=== PATIENT | female | born 1965 | race Caucasian/White ===

== ENCOUNTER → 2016-08-26 | Outpatient (CLI) | payer OTHER | LOC: CIMAGING 08:27 | PROVIDERS: ATTEND Obstetrics & Gynecology | DX: R19.09 Other intra-abdominal and pelvic swelling, mass and lump (principal); D25.2 Subserosal leiomyoma of uterus; D25.1 Intramural leiomyoma of uterus; Z97.5 Presence of (intrauterine) contraceptive device | CPT/HCPCS: 76856-PO ==

== ENCOUNTER → 2018-05-14 | Outpatient (CLI) | payer OTHER ==
[~2018-05-14] MED LIST: IOPAMIDOL (ISOVUE 370) 100 ML BTL IV ONE
== END ==
LOC: FIMAGING 14:39
PROVIDERS: ATTEND Physician Assistant Medical
DX: R22.1 Localized swelling, mass and lump, neck (principal); K11.5 Sialolithiasis
CPT/HCPCS: Q9967

== ENCOUNTER 2018-08-17 10:04 | Day surgery (SDC) | payer OTHER ==
[2018-08-17] MEDS ORDERED: ceFAZolin 2 GM/DEXTROSE 100 ML IV ONE (10:50)
--- NOTE | 2018-08-17 10:50 | PDHPUP ---
History & Physical Update H&P update statement: This history and physical update is based on an assessment of the patient which was completed after admission or registration (within 24 hours), but prior to the surgery/procedure. H&P update: H&P reviewed & patient examined, no change in patient's condition since H&P completed (plan for R submax gland excision and NIMS)
[2018-08-17] MEDS ORDERED: LIDO/EPI 1% **Not for Epidural 20 ML MDV ONE (11:13)
[2018-08-17] MEDS ORDERED: LR 1,000 ML IV ONE (11:22)
[2018-08-17] MEDS ORDERED: MIDAZOLAM 2 MG/2 ML VIAL ONE (11:22)
[2018-08-17] MEDS ORDERED: fentaNYL 100 MCG/2 ML INJ ONE ×2 (11:23→13:32)
[2018-08-17] MEDS ORDERED: PROPOFOL 200 MG/20 ML VIAL ONE (11:23)
--- NOTE | 2018-08-17 11:24 | PDANEPAE ---
ANE Past Medical History - Cardiovascular History Hx Hypertension: No Hx Arrhythmias: No Hx Chest Pain: No Hx Coronary Artery / Peripheral Vascular Disease: No Hx CHF / Valvular Disease: No Hx Palpitations: No - Pulmonary History Hx COPD: No Hx Asthma/Reactive Airway Disease: No Hx Recent Upper Respiratory Infection: No Hx Oxygen in Use at Home: No Hx Sleep Apnea: No Sleep Apnea Screening Result - Last Documented: Negative - Neurologic History Hx Cerebrovascular Accident: No Hx Seizures: No Hx Dementia: No Neurologic History Comment: migraines - hormonal - Endocrine History Hx Diabetes: No - Renal History Hx Renal Disorders: No Renal History Comment: kidney stone yrs ago - Liver History Hx Hepatic Disorders: No - Neurological & Psychiatric Hx Hx Neurological and Psychiatric Disorders: No - Cancer History Hx Cancer: No - Congenital Disorder History Hx Congenital Disorders: No - GI History Hx Gastrointestinal Disorders: No - Other Health History Other Health History: neg - Chronic Pain History Chronic Pain: No - Surgical History Prior Surgeries: neg ANE Review of Systems Review of Systems: - Exercise capacity METS (RN): 4 METS ANE Patient History - Allergies Allergies/Adverse Reactions: No Known Allergies Allergy (Verified 08/10/18 08:06) - Home Medications Home Medications: Ascorbic Acid [Vitamin C 500 mg (*)] 500 mg PO DAILY 08/17/18 [Last Taken Unknown] Cholecalciferol Vit D3 [Vitamin D3 (*)] 1,000 units PO DAILY 08/17/18 [Last Taken Unknown] Multivitamins [Multivitamin (*)] 1 each PO DAILY 08/17/18 [Last Taken Unknown] - Smoking Hx Smoking Status: Never smoked - Family Anes Hx Family Hx Anesthesia Complications: neg ANE Labs/Vital Signs - Vital Signs Respiratory Rate: 16 O2 Sat (%): 99 Height: 172.72 cm Weight: 61.235 kg ANE Physical Exam - Airway Mallampati Score: Class 2 - ASA Status ASA Status: I ANE Anesthesia Plan Anesthesia Plan: general endotracheal anesthesia
[2018-08-17] MEDS ORDERED: ONDANSETRON 4 MG/2 ML VIAL ONE (11:26)
[2018-08-17] MEDS ORDERED: ROCURONIUM 50 MG/5 ML VIAL ONE (11:26)
[2018-08-17] MEDS ORDERED: METOCLOPRAMIDE 10 MG/2 ML VIAL ONE (11:27)
[2018-08-17] MEDS ORDERED: DEXAMETHASONE 4 MG/ML VIAL ONE ×2 (12:21)
[2018-08-17] MEDS ORDERED: BACITRACIN ZINC 0.5 OZ OINTTUBE TP ONE (14:00)
[2018-08-17] MEDS ORDERED: LR 500 ML IV PRN (14:17)
[2018-08-17] MEDS ORDERED: NALOXONE HCL 0.4 MG/ML INJ IVP PRN (14:17)
[2018-08-17] MEDS ORDERED: ONDANSETRON 4 MG/2 ML VIAL IVP PRN (14:17)
[2018-08-17] MEDS ORDERED: oxyCODONE IR 5 MG TAB PO PRN (14:17)
[2018-08-17] MEDS ORDERED: fentaNYL 100 MCG/2 ML INJ IVP PRN (14:17)
[2018-08-17] MEDS ORDERED: PROMETHAZINE HCL 25 MG/ML INJ IVP PRN (14:17)
--- NOTE | 2018-08-17 14:18 | POSTANESTH ---
Post Anesthetic Evaluation Cardiovascular Status: Normal, Stable Respiratory Status: Normal, Stable Level of Consciousness/Mental Status: Can Participate in Eval Pain Control: Adequate, Prn Tx Ordered Nausea/Vomiting Control: Adequate, Prn Tx Ordered Complications Possibly Related to Anesthesia: None Noted
--- NOTE | 2018-08-17 14:27 | POSTOPPROG ---
Post Op Note Date of Operation: 08/17/18 Surgeon: [employer] Despatcher: Moody Uriostegui mD Anesthesiologist: Magdaleno Salomon MD Pre-op Diagnosis: R submandibular gland sialathiasis Post-op Diagnosis: same Procedure: R submax gland excision, NIMS Findings: very inflamed, sticky gland. Nerve found and intact, large distal stone Inf/Abcess present in the surg proc area at time of surgery?: No Depth: Superfical (Skin SQ) EBL: 50-100 Complications: none apparent Bowel Protocol: No Clean Closure Performed: Yes Drains: [place]
[2018-08-17] MEDS ORDERED: ACETAMINOPHEN 325 MG TAB ONE (14:55)
[2018-08-17] MEDS ORDERED: ACETAMINOPHEN 325 MG TAB PO ONE (15:00)
[2018-08-17 16:03] VITALS: BP 120/89
--- NOTE | 2018-08-18 10:48 | GCON ---
[f rep st] CONSULTATION DATE OF CONSULTATION: 08/17/2018 PREOPERATIVE DIAGNOSIS: Right submandibular sialolithiasis. POSTOPERATIVE DIAGNOSIS: Right submandibular sialolithiasis. NAME OF PROCEDURE: Right submandibular gland excision. VOCATIONAL COUNSELOR: Moody Uriostegui MD. ANESTHESIA: General. COMPLICATIONS: None. BLOOD LOSS: Minimal. FINDINGS: The patient was found to have a large stone in the distal portion of the duct that was rem neri with the gland. There was a significant amount of fibrosis and inflammation of the gland and th e surrounding tissues. PREOPERATIVE ASSESSMENT: The patient is a very pleasant woman who has a history of right submandibul ar swelling, pain and redness. She also had some subtle symptoms with eating. A CT scan was done sh owing a right distal submandibular gland stone that was 6 mm. It was felt that secondary to the size and location, that the submandibular gland should be removed with the duct. She agreed, and an info rmed consent was obtained. DESCRIPTION OF PROCEDURE: The patient was first seen in the preoperative area where informed consent was obtained. She was then brought back to the operating room where Anesthesia sedated and intubate d her. The bed was turned 180 degrees. She was prepped and draped in a sterile fashion. A universa l time-out protocol was performed. Once we confirmed this, an incision was marked out in the skin cr ease about 2 fingerbreadths below the mandible on the right side. I then made an incision through th e skin and subcutaneous tissues as well as the platysma. At this point, blunt dissection was used to find the inferior border of the submandibular gland as well as the posterior facial vein. The poste rior facial vein was clamped, ligated and divided, and then this was elevated up with the submandibul ar gland fascia, thereby protecting the marginal mandibular branch of the facial nerve, which we did have on monitoring using the [email or web address] NIM system. Once we had adequate exposure and had elevated th e tissue off the underlying submandibular gland, the gland was grasped and gentle dissection was used to release the gland from the surrounding tissues laterally, inferior to posterior and then anterior ly. The facial artery was found, and this was clamped, ligated and divided, thereby releasing the gl and from this area. I was able to delineate the anterior and posterior belly of the digastric muscle and then the mylohyoid muscle, and [employer] [employer] retractor was used to retract the mylohyoid muscle ante rior; and underneath this, I was able to dissect out the submandibular gland duct, and this was noted to have the large stone at the junction of the duct with the gland. The duct was then clamped, liga stefani and divided, tied off and then released. At this point, I then found the lingual nerve with its attachment to the gland at the submandibular ganglion. This was divided at the ganglion, thereby all owing the lingual nerve to retract up into the floor of mouth region, and then the gland was complete ly released from the surrounding tissues and removed and sent off the field for permanent pathology. There was a significant amount of inflammation and stickiness to the glands to the surrounding tissu es. All structures were kept intact and visualized throughout the procedure. Some normal saline was used to irrigate out the wound copiously and suctioned clear. There was no significant active bleed ing. A [place] drain was placed in the wound bed exiting the right aspect of the incision. This was sutured in place to the skin using a 5-0 nylon. The platysma and subcutaneous tissues were closed u sing 3-0 Vicryl in an interrupted fashion, and then a 5-0 nylon was used to close the skin in a runni ng fashion. The wound was then cleaned. Bacitracin was placed over the wound, and then the patient was turned back over to anesthesia. The marginal mandibular branch of nerve was able to be stimulate d through the NIM. There were no complications. She tolerated the procedure well, and she was taken to PACU postoperatively. /[id number]/MODL
== END 2018-08-17 16:19 | disposition home or self-care (01) ==
LOC: FSGY 10:04 → F3E 10:04 → UNDOADMOB 10:04 → UNDODISOB 16:19 → FSGY 16:19
PROVIDERS: ATTEND Otolaryngology
PROC: 0CTG0ZZ Resection of Right Submaxillary Gland, Open Approach (ICD-10-PCS; principal; 2018-08-17 11:30)
DX: K11.5 Sialolithiasis (principal)
CPT/HCPCS: J0690; J1100; J2250; J2405; J2704; J2765; J3010